=== PATIENT | male | born 2000 | race Caucasian/White ===

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

== ENCOUNTER 2021-02-22 10:47 | Emergency (ER) | payer MEDICAID ==
[~2021-02-22] VITALS: Ht 193 cm; Wt 117.9 kg
[2021-02-22] MEDS ORDERED: LIDOCAINE 1% INJ 20 ML 20 ML VIAL INJ STA (11:53)
--- NOTE | 2021-02-22 11:57 | ED Upper Extremity ---
General Chief Complaint: Laceration Stated Complaint: LEFT THUMB INJ Nursing Triage Note: Patient presents to the ED with c/o laceration to left thumb. He reports he was cutting meat and the knife sliced his thumb right below the nailbed. Source: patient History of Present Illness Date Seen by Provider: Feb 22, 2021 Time Seen by Provider: 10:50 Initial Comments 20-year-old male presenting with laceration to his left thumb. 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 He is right-hand dominant. He is up-to-date on his tetanus vaccination. He reports a lot of bleeding initially. He does have the bleeding controlled with the time he arrived to the ED. He was concerned because of the cut going into the nailbed. He states he did not feel this was work comp because he had done accidentally on his own. He left work to come here to the ED to be seen and treated. Location Injury Occurred: [place] Onset: just prior to arrival Severity: mild Pain/Injury Location: left thumb Method of Injury: incised Modifying Factors: Worse With Movement Allergies and Home Medications Allergies Coded Allergies: No Known Drug Allergies (Unverified , 02/22/21) Patient Home Medication List Home Medication List Reviewed: Yes Review of Systems Constitutional: No chills, No fever EENTM: no symptoms reported Respiratory: no symptoms reported Cardiovascular: no symptoms reported Gastrointestinal: no symptoms reported Genitourinary: no symptoms reported Musculoskeletal: see HPI Skin: see HPI Psychiatric/Neurological: Denies Numbness, Denies Paresthesia Past Kinqtuu-Ruvswg-Ysuxjg Hx Patient Social History Tobacco Use?: Yes Tobacco type used: Cigarettes Smoking Status: Current Everyday Smoker Use of E-Cig and/or Vaping dev: No Substance use?: No Alcohol Use?: No Pt feels they are or have been: No Immunizations Up To Date First/Initial COVID19 Vaccinat: Not currently vaccinated Past Medical History Surgery/Hospitalization HX: Hernia repair Physical Exam Vital Signs Vital Signs - First Documented 02/22/21 11:05 Temp 36.1 Pulse 73 Resp 14 B/P (MAP) 142/96 (111) Pulse Ox 100 O2 Delivery Room Air Capillary Refill : Less Than 3 Seconds Height, Weight, BMI Height: '" Weight: lbs. oz. kg; 31.00 BMI Method: General Appearance: WD/WN, no apparent distress Cardiovascular: normal peripheral pulses Hand: Left, laceration (left thumb laceration with extension of a small portion to the nail), nail injury (small extension of laceration onto the nail) Neurologic/Tendon: normal sensation, normal motor functions, normal tendon functions Neurologic/Psychiatric: product marketing director II-XII nml as tested, no motor/sensory deficits, alert, oriented x 3 Skin: normal color, warm/dry Procedures/Interventions Wound Location: Upper Extremities (left thumb) Wound Length (cm): 1.8 Wound's Depth, Shape: sub Q Wound Explored: clean Anesthesia: 1% Lidocaine (digital block) Volume Anesthetic (ccs): 6 Suture: Ethlion Suture Size: 4-0 Number of Sutures: 2 Layer Closure?: 1 Sterile Dressing Applied?: Yes Progress Verbally consented patient for repair of laceration. Placed digital block using 1% plain lidocaine at the base of his left thumb. He was still having some pain with cleaning so an additional infiltration of 1 mL of 1% plain lidocaine was done just proximal to the wound. After that he had good anesthetic effect. He had the wound cleaned with chlorhexidine scrub soap and sterile water. The wound edges were approximated using 4-0 Ethilon. He had a total of 2 simple interrupted stitches placed. He tolerated the procedure well without any immediate complication. Counseled on follow-up and return precautions. Counseled on removal of stitches in 10 to 14 days. Progress/Results/Core Measures Results/Orders My Orders Orders - SARAH ASCENCIO MD Lidocaine 1% Inj 20 Ml (Xylocaine 1% Inj (02/22/21 11:53) Suture Set At Bedside (02/22/21 11:53) Wound Dressing-Ed (02/22/21 11:53) Vital Signs/I&O Blood Pressure Mean: 111 Progress Progress Note : Progress Note Verbally consented for laceration repair with stitching. Counseled on follow-up and return precautions. Advised to keep wound clean and dry and covered especially when at work. Stitches out in 10 to 14 days. Departure Impression Primary Impression: Laceration of left thumb with damage to nail Qualified Codes: S61.112A - Laceration without foreign body of left thumb with damage to nail, initial encounter Disposition: 01 HOME, SELF-CARE Condition: Stable Departure-Patient Inst. Decision time for Depature: 14:05 Referrals: NO,LOCAL PHYSICIAN (PCP) Primary Care Physician Patient Instructions: Laceration Repair With Stitches ED Add. Discharge Instructions: Keep wound clean and dry for first 24 hours. Then may wash it with soap and water normally but do not soak it. Keep it covered with clean dry dressing while at work and wear splint over the dressing to keep from bumping it on objects. Wear gloves to keep the dressing clean and dry. Stitches should be removed in 10 to 14 days and you could return to ER to have that done. Return sooner if you have signs of infection such as redness streaking up the thumb and hand, fever over 101 F, pus draining from the wound. All discharge instructions reviewed with patient and/or family. Voiced understanding. Work/School Note: Work Release Form Date Seen in the Emergency Department: Feb 22, 2021 Return to Work: Feb 23, 2021 Other Restrictions Listed Below: Keep wound covered, clean, dry until stitches out 10-14 days. SARAH ASCENCIO MD Feb 22, 2021 11:57
[2021-02-22 14:19] VITALS: BP 142/96
== END 2021-02-22 14:22 | disposition home or self-care (01) ==
LOC: EDUNIT# 10:47 → ER FS 10:49
DX: S61.112A Laceration without foreign body of left thumb with damage to nail, initial encounter (principal); F17.210 Nicotine dependence, cigarettes, uncomplicated; W26.8XXA Contact with other sharp object(s), not elsewhere classified, initial encounter
CPT/HCPCS: 29130

== ENCOUNTER 2021-02-26 14:40 | Emergency (ER) | payer MEDICAID ==
[~2021-02-26] VITALS: Ht 193 cm; Wt 117.0 kg
[2021-02-26] MEDS ORDERED: ONDANSETRON 4 MG (ZOFRAN) ORAL DISSOLVE TAB PO STA (14:59)
[2021-02-26] MEDS ORDERED: FAMOTIDINE 20 MG (PEPCID) TABLET PO ONE (15:00)
--- NOTE | 2021-02-26 15:26 | ED Abdominal Pain ---
General Chief Complaint: Abdominal/GI Problems Stated Complaint: ABD PAIN AFTER EATING,BLOOD IN STOOL,DIZZY Nursing Triage Note: Patient reports constant abdominal pain that is worse after eating and nausea for 1-2 weeks. He denies any vomiting, states he had a loose stool today with some blood. He also reports some dizziness today. Source of Information: Patient Exam Limitations: No Limitations History of Present Illness Date Seen by Provider: Feb 26, 2021 Time Seen by Provider: 14:30 Initial Comments Patient is a 20-year-old male presents with epigastric pain and nausea starting several days ago. He denies vomiting but states pain is worse after eating. He reports of bright red blood in his soft stool today. He also reports nasal congestion and rhinorrhea with cough. No fever chills or sweats. No other ac effie symptoms or complaints no medications or therapies prior to ED arrival. He has not been evaluated for his symptoms prior to today's ER visit. Timing/Duration: 4-5 Days Severity/Quality: Dull Location: Other Radiation: Other Activities at Onset: Other Modifying Factors: Improves With Other Associated Symptoms: Other Allergies and Home Medications Allergies Coded Allergies: No Known Drug Allergies (Unverified , 02/22/21) Patient Home Medication List Home Medication List Reviewed: Yes Review of Systems Review of Systems Constitutional: see HPI EENTM: See HPI Respiratory: See HPI Cardiovascular: See HPI Gastrointestinal: See HPI Genitourinary: See HPI Musculoskeletal: see HPI Skin: see HPI Psychiatric/Neurological: See HPI Endocrine: See HPI Hematologic/Lymphatic: See HPI All Other Systems Reviewed Negative Unless Noted: Yes Past Nrjeylx-Lnljix-Xmvkst Hx Patient Social History Tobacco Use?: Yes Tobacco type used: Cigarettes Smoking Status: Current Someday Smoker Substance use?: No Alcohol Use?: Yes Alcohol Frequency: Rarely Pt feels they are or have been: No Immunizations Up To Date First/Initial COVID19 Vaccinat: Not currently vaccinated Past Medical History Surgery/Hospitalization HX: Hernia repair Physical Exam Vital Signs Vital Signs - First Documented 02/26/21 14:48 Temp 36.5 Pulse 62 Resp 16 B/P (MAP) 144/88 (106) Pulse Ox 100 O2 Delivery Room Air Capillary Refill : Less Than 3 Seconds Height/Weight/BMI Height: '" Weight: lbs. oz. kg; 31.00 BMI Method: General Appearance: WD/WN, no apparent distress HEENT: PERRL/EOMI, normal ENT inspection, pharynx normal, other (nasal congestion, clear rhinorhea) Neck: non-tender, full range of motion, supple Respiratory: chest non-tender, lungs clear, normal breath sounds Cardiovascular: regular rate, rhythm, no edema Gastrointestinal: soft, tenderness (midld epigastric ttp), other (epigastric pain/tenderness) Focused Exam Sepsis Stage: Ruled Out Procedures/Interventions Suture Size: 4-0 Progress/Results/Core Measures Results/Orders My Orders Orders - SKYLAR SARKAR DO Famotidine Tablet (Pepcid Tablet) (02/26/21 15:00) Ondansetron Oral Dissolve Tab (Zofran (02/26/21 14:59) Accucheck Stat ONCE (02/26/21 15:26) Medications Given in ED Current Medications Medications Dose Ordered Sig/Oliver Route Start Time Stop Time Status Last Admin Dose Admin Famotidine 20 mg ONCE ONCE PO 02/26/21 15:00 02/26/21 15:01 DC 02/26/21 15:23 20 MG Vital Signs/I&O 02/26/21 14:48 Temp 36.5 Pulse 62 Resp 16 B/P (MAP) 144/88 (106) Pulse Ox 100 O2 Delivery Room Air Blood Pressure Mean: 106 Departure Communication (Admissions) Symptoms consistent with mild upper gastritis. No rebound rigidity or guarding. Patient also has URI symptoms. Pepcid and Zofran given. Will treat supportively with watchful waiting and PCP referral. Return precautions reviewed. Patient verbalized understanding and agreement discharge instructions prior to departure. Impression Primary Impression: Gastritis Additional Impression: Viral syndrome Disposition: HOME, SELF-CARE Condition: Stable Departure-Patient Inst. Referrals: NO,LOCAL PHYSICIAN (PCP/Family) Primary Care Physician Patient Instructions: Gastritis ED Add. Discharge Instructions: You were evaluated in the emergency department for upper abdominal pain with nausea. The cause of your symptoms has not been determined but is likely viral in nature. Please avoid spicy foods caffeine and alcohol. Take newly prescribed medications as directed and establish with an local primary care provider. If you continue to have symptoms in the next 3 to 5 days and are unable to be seen by a primary care doctor, please return to the ED for reevaluation. All discharge instructions reviewed with patient and/or family. Voiced understanding. Scripts Ondansetron (Ondansetron Odt) 4 Mg Tab.rapdis 4 MG PO Q6H, #12 TAB Prov: SKYLAR SARKAR DO 02/26/21 Famotidine (Pepcid) 20 Mg Tablet 20 MG PO BID, #30 TAB Prov: SKYLAR SARKAR DO 02/26/21 Work/School Note: Family Work Note Patient Received Medical Care In the Emergency Department On: Feb 26, 2021 Patient Will Be Able to Return to Work/School On: Feb 28, 2021 SKYLAR SARKAR DO Feb 26, 2021 15:26
[2021-02-26] MEDS ORDERED: ONDA4TAB11 PO (15:33)
[2021-02-26] MEDS ORDERED: FAMO-119 PO (15:33)
[2021-02-26 15:41] VITALS: BP 114/75
== END 2021-02-26 15:43 | disposition home or self-care (01) ==
LOC: EDUNIT# 14:40 → ER FS 14:42
DX: K29.70 Gastritis, unspecified, without bleeding (principal); B34.9 Viral infection, unspecified; F17.210 Nicotine dependence, cigarettes, uncomplicated; Z87.19 Personal history of other diseases of the digestive system
CPT/HCPCS: 82947

== ENCOUNTER 2021-03-04 15:47 | Emergency (ER) | payer MEDICAID ==
[~2021-03-04] VITALS: Ht 193 cm; Wt 117.0 kg
[~2021-03-04 15:47] MED LIST: FAMO-119 PO; ONDA4TAB11 PO
--- NOTE | 2021-03-04 16:06 | ED General ---
General Chief Complaint: General Problems/Pain Stated Complaint: ABD PAIN; NAUSEA; SUTURE REMOVAL History of Present Illness Date Seen by Provider: Mar 04, 2021 Time Seen by Provider: 16:06 Initial Comments 20-year-old male presents with some epigastric discomfort and nausea. He has had a couple episodes of vomiting. Patient was seen here about 4 5 days ago and told he had a viral illness and gastritis. He presents because he continued have some issues. He has Zofran that was prescribed. He also described a little bit of diarrhea with it. Patient has no reports of fever chills cough or other systemic complaints Allergies and Home Medications Allergies Coded Allergies: No Known Drug Allergies (Unverified , 02/22/21) Patient Home Medication List Home Medication List Reviewed: Yes Famotidine (Pepcid) 20 Mg Tablet, 20 MG PO BID Prescribed by: SKYLAR SARKAR on 02/26/21 153 Ondansetron (Ondansetron Odt) 4 Mg Tab.rapdis, 4 MG PO Q6H Prescribed by: SKYLAR SARKAR on 02/26/21 153 Review of Systems Review of Systems Constitutional: No chills, No fever Respiratory: No cough, No short of breath Gastrointestinal: diarrhea, nausea, vomiting Genitourinary: no symptoms reported Musculoskeletal: no symptoms reported Skin: no symptoms reported Psychiatric/Neurological: No Symptoms Reported Hematologic/Lymphatic: No Symptoms Reported Past Jsdidmk-Dnhbhi-Hkmxfz Hx Patient Social History Tobacco Use?: Yes Tobacco type used: Cigarettes Smoking Status: Current Everyday Smoker Use of E-Cig and/or Vaping dev: No Substance use?: No Alcohol Use?: No Immunizations Up To Date First/Initial COVID19 Vaccinat: Not currently vaccinated Past Medical History Surgery/Hospitalization HX: Hernia repair Physical Exam Vital Signs Vital Signs - First Documented 03/04/21 16:00 Temp 36.6 Pulse 82 B/P (MAP) 153/96 (115) Capillary Refill : Height, Weight, BMI Height: '" Weight: lbs. oz. kg; 31.00 BMI Method: General Appearance: No Apparent Distress, WD/WN Neck: Non Tender, Supple Respiratory: Lungs Clear, Normal Breath Sounds Cardiovascular: Regular Rate, Rhythm, No Edema Gastrointestinal: Non Tender, Soft Extremity: Normal Capillary Refill, Normal Inspection, Normal Range of Motion Neurologic/Psychiatric: Alert, Oriented x3, No Motor/Sensory Deficits Procedures/Interventions Suture Size: 4-0 Progress/Results/Core Measures Suspected Sepsis SIRS Temperature: Pulse: Respiratory Rate: Laboratory Tests 03/04/21 16:19: White Blood Count 6.8 Blood Pressure / Mean: Laboratory Tests 03/04/21 16:19: Creatinine 0.94, Platelet Count 287, Total Bilirubin 0.8 Results/Orders Lab Results Laboratory Tests Test 03/04/21 16:19 Range/Units White Blood Count 6.8 4.3-11.0 10^3/uL Red Blood Count 5.23 4.30-5.52 10^6/uL Hemoglobin 15.2 13.3-17.7 g/dL Hematocrit 44 40-54 % Mean Corpuscular Volume 85 80-99 fL Mean Corpuscular Hemoglobin 29 25-34 pg Mean Corpuscular Hemoglobin Concent 34 32-36 g/dL Red Cell Distribution Width 12.9 10.0-14.5 % Platelet Count 287 130-400 10^3/uL Mean Platelet Volume 9.8 9.0-12.2 fL Immature Granulocyte % (Auto) 0 % Neutrophils (%) (Auto) 62 42-75 % Lymphocytes (%) (Auto) 27 12-44 % Monocytes (%) (Auto) 7 0-12 % Eosinophils (%) (Auto) 2 0-10 % Basophils (%) (Auto) 0 0-10 % Neutrophils # (Auto) 4.2 1.8-7.8 X 10^3 Lymphocytes # (Auto) 1.8 1.0-4.0 X 10^3 Monocytes # (Auto) 0.5 0.0-1.0 X 10^3 Eosinophils # (Auto) 0.2 0.0-0.3 10^3/uL Basophils # (Auto) 0.0 0.0-0.1 10^3/uL Immature Granulocyte # (Auto) 0.0 0.0-0.1 10^3/uL Sodium Level 141 135-145 MMOL/L Potassium Level 4.2 3.6-5.0 MMOL/L Chloride Level 105 98-107 MMOL/L Carbon Dioxide Level 25 21-32 MMOL/L Anion Gap 11 5-14 MMOL/L Blood Urea Nitrogen 12 7-18 MG/DL Creatinine 0.94 0.60-1.30 MG/DL Estimat Glomerular Filtration Rate 103 BUN/Creatinine Ratio 13 Glucose Level 94 70-105 MG/DL Calcium Level 9.5 8.5-10.1 MG/DL Corrected Calcium 9.1 8.5-10.1 MG/DL Total Bilirubin 0.8 0.1-1.0 MG/DL Aspartate Amino Transf (AST/SGOT) 18 5-34 U/L Alanine Aminotransferase (ALT/SGPT) 27 0-55 U/L Alkaline Phosphatase 78 40-136 U/L C-Reactive Protein < 0.30 <0.50 MG/DL Total Protein 7.7 6.4-8.2 GM/DL Albumin 4.5 3.2-4.5 GM/DL Lipase 30 8-78 U/L Influenza Type A Antigen NEGATIVE NEGATIVE Influenza Type B Antigen NEGATIVE NEGATIVE My Orders Orders - GRACE TOMLINSON DO Cbc With Automated Diff (03/04/21 16:10) Comprehensive Metabolic Panel (03/04/21 16:10) Covid 19 Inhouse Test (03/04/21 16:10) Influenza A & B Antigens (03/04/21 16:10) Lipase (03/04/21 16:10) Ns Iv 1000 Ml (Sodium Chloride 0.9%) (03/04/21 16:10) Famotidine Injection (Pepcid Injection) (03/04/21 16:10) Crp Fs (03/04/21 16:19) Vital Signs/I&O 03/04/21 16:00 Temp 36.6 Pulse 82 B/P (MAP) 153/96 (115) Capillary Refill : Progress Note : Progress Note Patient's labs show no acute changes. Patient exam was benign. Suspect he has reflux or a viral gastroenteritis. He should continue his prescribed Pepcid. Patient stable and discharged home Departure Impression Primary Impression: Gastritis Qualified Codes: K29.00 - Acute gastritis without bleeding Additional Impression: Gastroenteritis Disposition: HOME, SELF-CARE Condition: Stable Departure-Patient Inst. Referrals: NO,LOCAL PHYSICIAN (PCP/Family) Primary Care Physician Patient Instructions: Gastritis (DC), Viral Gastroenteritis, Adult (DC) Add. Discharge Instructions: Continue your prescribed medication from your previous visit. It can take up to 10 to 14 days to take full effect Please establish care with a primary care provider for further outpatient management and possible GI consult as needed All discharge instructions reviewed with patient and/or family. Voiced understanding. GRACE TOMLINSON DO Mar 04, 2021 16:06
[2021-03-04] MEDS ORDERED: FAMOTIDINE 20MG/2ML IV (PEPCID) IV STA (16:10)
[2021-03-04] MEDS ORDERED: NS IV 1000 ML 1,000 ML IV STA (16:10)
[2021-03-04 16:30] LABS: BASOPHILS % (AUTO) 0 % (0-10); EOSINOPHILS # (AUTO) 0.2 10^3/uL (0.0-0.3); EOSINOPHILS % (AUTO) 2 % (0-10); HEMATOCRIT 44 % (40-54); HEMOGLOBIN 15.2 g/dL (13.3-17.7); LYMPHOCYTES # (AUTO) 1.8 X 10^3 (1.0-4.0); LYMPHOCYTES % (AUTO) 27 % (12-44); MEAN CORPUSCULAR HEMOGLOBIN 29 pg (25-34); MEAN CORPUSCULAR HGB CONC 34 g/dL (32-36); MEAN CORPUSCULAR VOLUME 85 fL (80-99); MEAN PLATELET VOLUME 9.8 fL (9.0-12.2); MONOCYTES # (AUTO) 0.5 X 10^3 (0.0-1.0); MONOCYTES % (AUTO) 7 % (0-12); NEUTROPHILS # (AUTO) 4.2 X 10^3 (1.8-7.8); NEUTROPHILS % (AUTO) 62 % (42-75); PLATELET COUNT 287 10^3/uL (130-400); WHITE BLOOD COUNT 6.8 10^3/uL (4.3-11.0)
[2021-03-04 16:51] LABS: ALBUMIN 4.5 GM/DL (3.2-4.5); BILIRUBIN,TOTAL 0.8 MG/DL (0.1-1.0); CALCIUM 9.5 MG/DL (8.5-10.1); CREATININE SERUM 0.94 MG/DL (0.60-1.30); POTASSIUM 4.2 MMOL/L (3.6-5.0); TOTAL PROTEIN 7.7 GM/DL (6.4-8.2)
[2021-03-04 17:06] VITALS: BP 146/82
== END 2021-03-04 17:06 | disposition home or self-care (01) ==
LOC: EDUNIT# 15:47 → ER FS 15:48
DX: K29.70 Gastritis, unspecified, without bleeding (principal); K52.9 Noninfective gastroenteritis and colitis, unspecified; F17.210 Nicotine dependence, cigarettes, uncomplicated; Z20.822 Contact with and (suspected) exposure to COVID-19
CPT/HCPCS: 36415; 80053; 83690; 85025; 86141; 87635; 87636; 87804

== ENCOUNTER 2022-10-07 16:35 | Emergency (ER) | payer SELFPAY ==
[~2022-10-07] VITALS: Ht 193.8 cm; Wt 106.6 kg
[2022-10-07 16:38] VITALS: BP 166/94
[2022-10-07] MEDS ORDERED: HOLD METFORMIN - RECEIVED CONTRAST 20 ML VIAL IV SCH (16:45)
[2022-10-07] MEDS ORDERED: NS 100 ML (IVPB) BAG IV ONE (16:45)
[2022-10-07] MEDS ORDERED: IBUPROFEN 600 MG TABLET PO ONE (16:45)
[2022-10-07] MEDS ORDERED: IOHEXOL 350 MG/ML 100 ML (OMNIPAQUE 350) VIAL IV ONE (16:45)
--- NOTE | 2022-10-07 16:47 | ED Integumentary General ---
General Chief Complaint: Skin/Wound Problems Stated Complaint: INFECTED BELLY BUTTON Source: patient, RN/MD Exam Limitations: no limitations History of Present Illness Date Seen by Provider: Oct 07, 2022 Time Seen by Provider: 16:37 Initial Comments 22-year-old male with no pertinent past medical history coming in as a referral from urgent care due to concern for an abdominal wall abscess. It formed roughly 5 days ago, went to the urgent care on 04 October and had an incision and drainage. He states there was hardly any drainage at all. He was started on Bactrim and has been taking that. It has been getting worse, so he went back to the urgent care today, and they referred him to the ER. He is unsure if he has had a fever. He is otherwise denying any other acute complaints. This has never occurred before. Allergies and Home Medications Allergies Coded Allergies: No Known Drug Allergies (Unverified , 02/22/21) Patient Home Medication List Home Medication List Reviewed: Yes Clindamycin HCl (Clindamycin HCl) 300 Mg Capsule, 300 MG PO QID Prescribed by: RENY RO on 10/07/22 175 Famotidine (Pepcid) 20 Mg Tablet, 20 MG PO BID Prescribed by: SKYLAR SARKAR on 02/26/21 1533 Ondansetron (Ondansetron Odt) 4 Mg Tab.rapdis, 4 MG PO Q6H Prescribed by: SKYLAR SARKAR on 02/26/21 1533 Review of Systems Review of Systems Constitutional: No fever EENTM: no symptoms reported Respiratory: no symptoms reported Cardiovascular: no symptoms reported Gastrointestinal: no symptoms reported Genitourinary: no symptoms reported Musculoskeletal: no symptoms reported Skin: see HPI Psychiatric/Neurological: No Symptoms Reported Endocrine: No Symptoms Reported Past Uenxxgb-Zbbcgs-Cfgdya Hx Patient Social History Tobacco Use?: Yes Tobacco type used: Cigarettes Use of E-Cig and/or Vaping dev: Yes E-Cig or Vaping type used: Nicotine Immunizations Up To Date First/Initial COVID19 Vaccinat: Not currently vaccinated Past Medical History Surgery/Hospitalization HX: Hernia repair Physical Exam Vital Signs Vital Signs - First Documented 10/07/22 16:38 Temp 37.8 Pulse 92 Resp 16 B/P (MAP) 166/94 (118) O2 Delivery Room Air Capillary Refill : General Appearance: WD/WN, no apparent distress HEENT: PERRL/EOMI, normal ENT inspection, pharynx normal Neck: non-tender, full range of motion, supple, normal inspection Cardiovascular: regular rate, rhythm, no edema, no murmur Respiratory: chest non-tender, lungs clear, normal breath sounds, no respiratory distress, no accessory muscle use Gastrointestinal: normal bowel sounds, soft, other (Periumbilical abscess with fluctuance and overlying cellulitis and induration) Back: normal inspection Extremities: normal range of motion, non-tender, normal inspection, no pedal edema, no calf tenderness, normal capillary refill Neurologic/Psychiatric: no motor/sensory deficits, alert, normal mood/affect Procedures/Interventions I&D : Site: umbilical Blade Size: 11 I & D Procedure: Wound Packing Packing/Drain: Idoform 03/05 Progress The area was cleaned with chlorhexidine and allowed to dry. It was anesthetized with a 27-gauge needle and 2% lidocaine with epinephrine. 7 cc was used of the lidocaine. I performed a stab incision that was lengthened to just roughly 2 cm. There is a very large amount of purulent drainage. The area was probed and deloculated with forceps after with more drainage. It was packed with iodoform gauze. Patient tolerated the procedure well. Suture Size: 4-0 Progress/Results/Core Measures Results/Orders Lab Results Laboratory Tests Test 10/07/22 16:44 Range/Units White Blood Count 15.0 H 4.3-11.0 10^3/uL Red Blood Count 5.21 4.30-5.52 10^6/uL Hemoglobin 15.0 13.3-17.7 g/dL Hematocrit 45 40-54 % Mean Corpuscular Volume 85 80-99 fL Mean Corpuscular Hemoglobin 29 25-34 pg Mean Corpuscular Hemoglobin Concent 34 32-36 g/dL Red Cell Distribution Width 12.5 10.0-14.5 % Platelet Count 225 130-400 10^3/uL Mean Platelet Volume 9.6 9.0-12.2 fL Immature Granulocyte % (Auto) 0 % Neutrophils (%) (Auto) 74 42-75 % Lymphocytes (%) (Auto) 16 12-44 % Monocytes (%) (Auto) 9 0-12 % Eosinophils (%) (Auto) 1 0-10 % Basophils (%) (Auto) 0 0-10 % Neutrophils # (Auto) 11.1 H 1.8-7.8 10^3/uL Lymphocytes # (Auto) 2.4 1.0-4.0 10^3/uL Monocytes # (Auto) 1.4 H 0.0-1.0 10^3/uL Eosinophils # (Auto) 0.1 0.0-0.3 10^3/uL Basophils # (Auto) 0.0 0.0-0.1 10^3/uL Immature Granulocyte # (Auto) 0.0 0.0-0.1 10^3/uL Neutrophils % (Manual) 78 % Lymphocytes % (Manual) 15 % Monocytes % (Manual) 7 % Sodium Level 134 L 135-145 MMOL/L Potassium Level 4.2 3.6-5.0 MMOL/L Chloride Level 98 98-107 MMOL/L Carbon Dioxide Level 23 21-32 MMOL/L Anion Gap 13 5-14 MMOL/L Blood Urea Nitrogen 13 7-18 MG/DL Creatinine 1.25 0.60-1.30 MG/DL Estimat Glomerular Filtration Rate 84 BUN/Creatinine Ratio 10 Glucose Level 100 70-105 MG/DL Calcium Level 9.8 8.5-10.1 MG/DL Corrected Calcium 9.4 8.5-10.1 MG/DL Total Bilirubin 0.9 0.1-1.0 MG/DL Aspartate Amino Transf (AST/SGOT) 19 5-34 U/L Alanine Aminotransferase (ALT/SGPT) 17 0-55 U/L Alkaline Phosphatase 85 40-136 U/L Total Protein 7.8 6.4-8.2 GM/DL Albumin 4.5 3.2-4.5 GM/DL My Orders Orders - RENY RO MD Cbc With Automated Diff (10/07/22 16:42) Comprehensive Metabolic Panel (10/07/22 16:42) Ct Abdomen/Pelvis W (10/07/22 16:42) Ibuprofen Tablet (Motrin Tablet) (10/07/22 16:45) Iohexol Injection (Omnipaque 350 Mg/Ml 1 (10/07/22 16:45) Received Contrast (Hold Metformin- Contr (10/07/22 16:45) Ns (Ivpb) 100 Ml (Sodium Chloride 0.9% 1 (10/07/22 16:45) Manual Differential (10/07/22 16:44) Medications Given in ED Current Medications Medications Dose Ordered Sig/Oliver Route Start Time Stop Time Status Last Admin Dose Admin Ibuprofen 600 mg ONCE ONCE PO 10/07/22 16:45 10/07/22 16:46 DC 10/07/22 17:07 600 MG Iohexol 100 ml ONCE ONCE IV 10/07/22 16:45 10/07/22 16:46 DC 10/07/22 17:07 80 ML Sodium Chloride 100 ml ONCE ONCE IV 10/07/22 16:45 10/07/22 16:46 DC 10/07/22 17:08 80 ML Vital Signs/I&O 10/07/22 16:38 Temp 37.8 Pulse 92 Resp 16 B/P (MAP) 166/94 (118) O2 Delivery Room Air Progress Progress Note : Progress Note 22-year-old male with above history coming in as a referral from the urgent care due to an abdominal wall abscess. ABCs were intact and vitals were stable on presentation although he is febrile. He was given ibuprofen for pain here. An IV was placed and basic labs were obtained and were significant for leukocytosis, normal creatinine, unremarkable electrolytes. CT abdomen pelvis ordered and interpreted by me showing a periumbilical abscess that does not go beyond the skin. The area was cleansed, anesthetized, and a single stab incision that was lengthened to 2 cm with a large amount of purulent drainage noted. The area was probed and deloculated with forceps with more drainage. It was then packed with half-inch iodoform gauze. He clearly has overlying cellulitis on the abdomen which is not extending too far, he only has 1 more day of antibiotics. I will send a prescription for a new antibiotic. A culture was also sent. I believe he is stable for discharge with outpatient follow-up. He was sent home with strict return precautions. Diagnostic Imaging Diagonstic Imaging: CT (abd/pelvis) Comments [facility], [place] NAME: VIOLETA HERNANDEZ [facility] REC#: [id number] PT STATUS: REG ER : 2000 PHYSICIAN: RENY RO MD ADMIT DATE: 10/07/22/ER FS Draft Date of Exam:10/07/22 CT ABDOMEN/PELVIS W EXAMINATION: CT abdomen and pelvis with intravenous contrast. TECHNIQUE: Multiple contiguous axial images were obtained through the abdomen and pelvis after the uneventful administration of intravenous contrast. All CT scans use one or more of the following dose optimizing techniques: automated exposure control, MA and/or KvP adjustment based on patient size and exam type or iterative reconstruction. HISTORY: Abdominal wall abnormality. COMPARISON: None available. FINDINGS: Lung bases: The lung bases are clear. Solid organs: The liver is normal without focal lesion. The gallbladder is normal. There is no biliary ductal dilation. Pancreas is normal. Spleen is normal. Adrenal glands are normal. There are bilateral nonobstructing renal calculi measuring up to 0.2 cm. No hydronephrosis. Bowel: The stomach and small bowel are normal without obstruction. The colon is normal. The appendix is normal. Peritoneum: There is no intraperitoneal free fluid or free air. No suspicious lymphadenopathy. Vasculature: Normal without aneurysm. Musculoskeletal: No suspicious osseous lesion or compression fracture. There is a periumbilical fluid collection with surrounding inflammatory stranding. This measures 3.8 x 3.5 cm. Pelvis: The prostate gland is normal. The urinary bladder is normal. IMPRESSION: 1. Periumbilical loculated fluid collection with surrounding inflammation measuring up to 3.8 x 3.5 cm. 2. Bilateral nonobstructing renal calculi. Dictated on workstation # [id number] Dict: 10/07/221711 Trans: 10/07/22 [address] [facility] [id number] Interpreted by: DENISE ATKINS DO Electronically signed by: Departure Impression Primary Impression: Abdominal wall abscess Disposition: 01 HOME, SELF-CARE Condition: Stable Departure-Patient Inst. Decision time for Depature: 18:00 Referrals: [facility]/JOSY DIAZ,LOCAL PHYSICIAN (PCP) Primary Care Physician Patient Instructions: Abscess Incision and Drainage Add. Discharge Instructions: We will put you on a different antibiotic for the next week. Take ibuprofen as needed for pain. Take the packing out tomorrow night and then cover it back up with gauze for another day as it likely will bleed some more. After that, just allow it to drain naturally and closed back up. If it worsens again, we would recommend following up with an ER. Please contact [facility], the number in this paperwork to schedule an appointment for primary care so you will have someone that sees you regularly. Scripts Clindamycin HCl (Clindamycin HCl) 300 Mg Capsule 300 MG PO QID for 7 Days, #28 CAP Prov: RENY RO MD 10/07/22 Work/School Note: Work Release Form Date Seen in the Emergency Department: Oct 07, 2022 Return to Work: Oct 08, 2022 Restrictions: No Restrictions RENY RO MD Oct 07, 2022 16:47
[2022-10-07 16:48] LABS: BASOPHILS % (AUTO) 0 % (0-10); EOSINOPHILS # (AUTO) 0.1 10^3/uL (0.0-0.3); EOSINOPHILS % (AUTO) 1 % (0-10); HEMATOCRIT 45 % (40-54); LYMPHOCYTES # (AUTO) 2.4 10^3/uL (1.0-4.0); LYMPHOCYTES % (AUTO) 16 % (12-44); MEAN CORPUSCULAR HEMOGLOBIN 29 pg (25-34); MEAN CORPUSCULAR HGB CONC 34 g/dL (32-36); MEAN CORPUSCULAR VOLUME 85 fL (80-99); MEAN PLATELET VOLUME 9.6 fL (9.0-12.2); MONOCYTES # (AUTO) 1.4 10^3/uL (0.0-1.0); MONOCYTES % (AUTO) 9 % (0-12); NEUTROPHILS # (AUTO) 11.1 10^3/uL (1.8-7.8); NEUTROPHILS % (AUTO) 74 % (42-75); PLATELET COUNT 225 10^3/uL (130-400)
[2022-10-07 17:08] LABS: BILIRUBIN,TOTAL 0.9 MG/DL (0.1-1.0); CALCIUM 9.8 MG/DL (8.5-10.1); CREATININE SERUM 1.25 MG/DL (0.60-1.30); POTASSIUM 4.2 MMOL/L (3.6-5.0); TOTAL PROTEIN 7.8 GM/DL (6.4-8.2)
[2022-10-07 17:09] LABS: ALBUMIN 4.5 GM/DL (3.2-4.5); LYMPHOCYTES % (MANUAL) 15 %; MONOCYTES % (MANUAL) 7 %; NEUTROPHILS % (MANUAL) 78 %
--- NOTE | 2022-10-07 17:19 | Diagnostic Imaging Report ---
EXAMINATION: CT abdomen and pelvis with intravenous contrast. TECHNIQUE: Multiple contiguous axial images were obtained through the abdomen and pelvis after the uneventful administration of intravenous contrast. All CT scans use one or more of the following dose optimizing techniques: automated exposure control, MA and/or KvP adjustment based on patient size and exam type or iterative reconstruction. HISTORY: Abdominal wall abnormality. COMPARISON: None available. FINDINGS: Lung bases: The lung bases are clear. Solid organs: The liver is normal without focal lesion. The gallbladder is normal. There is no biliary ductal dilation. Pancreas is normal. Spleen is normal. Adrenal glands are normal. There are bilateral nonobstructing renal calculi measuring up to 0.2 cm. No hydronephrosis. Bowel: The stomach and small bowel are normal without obstruction. The colon is normal. The appendix is normal. Peritoneum: There is no intraperitoneal free fluid or free air. No suspicious lymphadenopathy. Vasculature: Normal without aneurysm. Musculoskeletal: No suspicious osseous lesion or compression fracture. There is a periumbilical fluid collection with surrounding inflammatory stranding. This measures 3.8 x 3.5 cm. Pelvis: The prostate gland is normal. The urinary bladder is normal. IMPRESSION: 1. Periumbilical loculated fluid collection with surrounding inflammation measuring up to 3.8 x 3.5 cm. 2. Bilateral nonobstructing renal calculi. Dictated by: Dictated on workstation # [id number]
[2022-10-07] MEDS ORDERED: CLIN-144 PO (17:55)
== END 2022-10-07 18:01 | disposition home or self-care (01) ==
LOC: EDUNIT# 16:35 → ER FS 16:37
DX: L02.211 Cutaneous abscess of abdominal wall (principal); F17.210 Nicotine dependence, cigarettes, uncomplicated; F17.290 Nicotine dependence, other tobacco product, uncomplicated; Z28.310 Unvaccinated for COVID-19; Z98.890 Other specified postprocedural states
CPT/HCPCS: 10061; 36415; 74177; 80053; 85007; 85027; 87070; 87205; Q9967